=== PATIENT | female | born 1980 | race Caucasian/White ===

== ENCOUNTER 2017-04-13 15:27 | Emergency (ER) | payer OTHER ==
[~2017-04-13] VITALS: Ht 152.4 cm; Wt 58.5 kg
[2017-04-13 15:30] VITALS: Ht 152.4 cm; Wt 58.5 kg
--- NOTE | 2017-04-13 16:26 | RADRPT ---
PROCEDURE: XR Chest. CLINICAL INDICATION: Chest pain TECHNIQUE: AP view of the chest was performed. COMPARISON: None. FINDINGS: The lungs are clear. The lung volumes are normal. The heart size is normal. The osseous structure s are intact. IMPRESSION: Negative examination. RPTAT: QQ .Day Benjamin MD, Date Time Electronically viewed and signed by .Day Benjamin MD, on 04/13/2017 16:26 .M/
--- NOTE | 2017-04-13 16:44 | ERD ---
ER Documentation Chief Complaint Date/Time DATE: 04/13/17 TIME: 16:41 Chief Complaint complains of chest pain sent from for eval. HPI Patient is a 36 year old female here with friend who presents to the ED with chest pain on and off x 1 week. States that the pain comes and goes and is located in her mid sternum and occasionally radiates to her neck and left arm. States that it comes on at rest sometimes or with exertion. States that she went to her primary care provider Dr Fung at the [facility] on 04/08/17 who referred her to the ER, however she did not go because she wanted to see her symptoms resolved on their own. Denies nausea or vomiting. Denies headache or dizziness. Denies syncopal episode. Denies fever or chills. States that she has taken Flexeril which is helped minimally with her neck pain. ROS All systems reviewed and are negative except as per history of present illness. Medications Home Meds Active Scripts Naproxen* (Naprosyn*) 500 Mg Tablet, 500 MG PO BID Y for PAIN AND/OR INFLAMMATION, #30 TAB Prov:LARRY AQUINO PA-C 04/13/17 PMhx/Soc Medical and Surgical Hx: pt denies Medical Hx, pt denies Surgical Hx History of Surgery: No Anesthesia Reaction: No Hx Neurological Disorder: No Hx Respiratory Disorders: No Hx Cardiac Disorders: No Hx Psychiatric Problems: No Hx Miscellaneous Medical Probl: No Hx Alcohol Use: No Hx Substance Use: No Hx Tobacco Use: No Smoking Status: Never smoker Physical Exam Vitals Vital Signs Date Time Temp Pulse Resp B/P Pulse Ox O2 Delivery O2 Flow Rate FiO2 04/13/17 15:30 99.1 82 20 134/73 96 Physical Exam GENERAL: Well-developed, well-nourished female. Appears in no acute distress. HEAD: Normocephalic, atraumatic. EYES: Pupils are equally reactive bilaterally. EOMs grossly intact. No conjunctival erythema. ENT: Moist mucous membranes. No uvula deviation. No kissing tonsils. No exudates. non tender to palpation NECK: Supple. No lymphadenopathy or thyromegaly. No meningismus. negative kernig. negative brudinski. LUNG: Clear to auscultation bilaterally. No rhonchi, wheezing, rales or coarse breath sounds. HEART: Regular rate and rhythm. No murmurs, rubs or gallops. Extremities: Equal pulses bilaterally. No peripheral clubbing, cyanosis or edema. No unilateral leg swelling. NEUROLOGIC: Alert and oriented. Moving all four extremities. 5/5 strength in all extremities. Normal speech. Steady gait. SKIN: Normal color. Warm and dry. No rashes or lesions. Capillary refill < 2 seconds Results 24 hrs Laboratory Tests Test 04/13/17 16:20 Troponin I < 0.012ng/ml Procedures/MDM ER COURSE: I kept the patient and/or family informed of laboratory and diagnostic imaging results throughout the emergency room course. IMAGING STUDIES EKG performed, read by DR JEONG 75bpm, normal sinus rhythm, normal axis, no acute ST segment changes, no T wave inversion [place] [id number] Radiology Main Line: [phone] DIAGNOSTIC IMAGING REPORT Patient: JAMIE MACKEY : 1980 Age: 36 Sex: F MR #: [id number] DOS: 04/13/17 1558 Ordering MD: LARRY AQUINO PA-C Location: [facility] Room/Bed: PROCEDURE: XR Chest. CLINICAL INDICATION: Chest pain TECHNIQUE: AP view of the chest was performed. COMPARISON: None. FINDINGS: The lungs are clear. The lung volumes are normal. The heart size is normal. The osseous structures are intact. IMPRESSION: Negative examination. RPTAT: QQ .Day Benjamin MD, MD Date Time Electronically viewed and signed by .Day Benjamin MD, MD on 04/13/2017 16:26 .M/ CC: LARRY AQUINO PA-C MEDICAL DECISION MAKING: This is a 36 year old female who presents with chest pain x 1 week. Vital signs were reviewed. Patient is afebrile. Patient is not hypoxic. Patient is not toxic or ill-appearing. Patient's troponin was within normal limits and her EKG was within normal limits as well as her chest x-ray. Patient likely has chest wall pain I have low suspicion for cardiac emergency. Low suspicion for ACS, PE, AAA, dissection, DVT DISCHARGE: At this time, patient is stable for discharge and outpatient management with no new complaints during the ER course. Patient was sent home with Selena and a copy of all imaging and laboratory studies and to follow-up with her primary care provider in 2 days patient will be discharged home with instructions to recheck for new or worsening symptoms such as fever, nausea, weakness, LOC and to follow up with primary care in the next 1-2 days. Patient was advised to return to the ER for any new or worsening symptoms. Plan was discussed and patient and/or family understands and agrees. Home instructions were given. Departure Diagnosis: Primary Impression: Chest wall pain Condition: Stable LARRY AQUINO PA-C Apr 13, 2017 16:44
[2017-04-13] MEDS ORDERED: NAPR-260 PO (17:21)
== END 2017-04-13 17:37 | disposition home or self-care (01) ==
LOC: FTE 15:27
DX: R07.89 Other chest pain (principal)
CPT/HCPCS: 71010; 84484; 93005